=== PATIENT | female | born 1955 | race Caucasian/White ===

== ENCOUNTER → 2024-01-31 | Day surgery (SDC) | payer MEDICARE, MEDICAID ==
[~2024-01-31] MED LIST: Balanced Salt Ophth Irrig 15 ML BOTTLE *BULK OP SCH; CYCLOPENTOLATE 1% OP SCH; EPINEPHrine 1 MG/ML (1:1000) 1 ML AMP IR SCH; Ketorolac 0.5% Ophth Soln 5 ML Bottle *BULK OP SCH; Midazolam 2 MG/2 ML VIAL IV ONE; Phenylephrine 10% Ophth Soln 5 ML BOTTLE *BULK OP SCH; Polymyxin B Sulfate/Trimethoprim Ophth Soln 10 ML BOTTLE *BULK OP SCH; Povidone Iodine 5% Ophth Soln 30 ML BOTTLE *BULK OP SCH; Proparacaine 0.5% Ophth Soln 15 ML BOTTLE *BULK OP SCH; Tropicamide 1% Ophth Soln Bottle *BULK OP SCH
== END | disposition home or self-care (01) ==
LOC: MSO 09:50
DX: H25.811 Combined forms of age-related cataract, right eye (principal)
CPT/HCPCS: 00142; J0171; J2250; V2632

== ENCOUNTER 2024-07-02 06:57 | Emergency (ER) | payer MEDICARE, MEDICAID ==
[~2024-07-02] VITALS: Ht 165.1 cm; Wt 62.3 kg
[2024-07-02 07:03] VITALS: BP 120/82
== END 2024-07-02 08:08 | disposition home or self-care (01) ==
LOC: ED 06:57
DX: J02.8 Acute pharyngitis due to other specified organisms (principal)